=== PATIENT | female | born 1980 | race Caucasian/White ===

== ENCOUNTER 2017-09-11 22:11 | Inpatient (IN) | payer MEDICAID ==
[2017-09-12] MEDS ORDERED: ZIPRASIDONE 20 MG VIAL IM PRN (00:56)
[2017-09-12] MEDS ORDERED: MAGNESIUM HYDROXIDE 2,400 MG/10 ML CUP PO PRN (00:56)
[2017-09-12] MEDS ORDERED: MAG HYDROX/AL HYDROX/SIMETH 30 ML CUP PO PRN (00:56)
[2017-09-12] MEDS ORDERED: LORazepam 1 MG TAB PO PRN (00:56)
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
[2017-09-12] MEDS: lamoTRIgine 25 MG TAB PO SCH (10:04)
[2017-09-12] MEDS: NICOTINE 7MG/24HR PATCH TRANSDERM SCH (10:05)
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
[2017-09-12] MEDS: ACETAMINOPHEN TAB 325 MG TAB PO PRN (12:36)
[2017-09-13 06:36] VITALS: BP 145/74; PULSE 66; RESP 16; TEMP 97.8
[2017-09-13] MEDS ORDERED: LISINOPRIL 20 MG TAB PO SCH (09:00)
[2017-09-13] MEDS ORDERED: METOPROLOL SUCCINATE (ER) 25 MG TAB.ER.24H PO SCH (09:00)
[2017-09-13] MEDS: lamoTRIgine 25 MG TAB PO SCH (09:00)
[2017-09-13] MEDS ORDERED: CLOPIDOGREL 75 MG TAB PO SCH (09:00)
[2017-09-13] MEDS: NICOTINE 7MG/24HR PATCH TRANSDERM SCH (09:01)
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
--- NOTE | 2017-09-13 11:41 | P.DS ---
Providers Date of admission: 09/11/17 23:52 Expected date of discharge: 09/13/17 Attending physician: Kim Epstein Consults: 09/12/17 01:11 Consult Physician Routine Consulting Provider: Melisa Ramírez Consult Reason/Comments: h&p and medical follow up Do you want consulting provider notified?: Already Contacted Primary care physician: [facility] Course: Patient had a psychiatric evaluation is today and she was started on Lamictal 25 mg in the morning. She has been taking this medicine and does not have any adverse effect she had 2 doses and she thinks her mind is clearer and she can control her feelings better than it was. She is eager to return to assisted [facility] posted and gone with her life after hiring a environmental attorney etc. This was discussed with the treatment team and they all agreed that she could be discharged safely today. The social science analyst agreed to make follow-up appointments for the patient and called the assisted to pick her up. Her mental status is about the same as it was this morning. She is polite and friendly and cooperative she continues to deny suicidal and homicidal ideas. She denies hallucinations and delusional thinking. Her sensorium is clear. Patient is given a 30 day prescription for Lamictal 25 mg in the morning. She agreed to discuss with her outpatient doctor if her medicines need to be adjusted increased decreased or changed. She was advised not to drive or operate machinery if she feels sleepy, not to drink alcohol or use drugs, to inform her doctor if she gets and to call her therapist or go to the nearest ER if she gets suicidal thoughts. Patient Condition at Discharge: Good Plan - Discharge Summary New Discharge Prescriptions: New Acetaminophen Tab [Tylenol] 650 mg PO Q4HR PRN tab PRN Reason: Pain/Discomfort lamoTRIgine [LaMICtal] 25 mg PO DAILY 30 Days #30 tab Mag Hydrox/Al Hydrox/Simeth [Maalox] 30 ml PO Q4HR PRN cup PRN Reason: Gi Upset Discharge Medication List Acetaminophen Tab [Tylenol] 650 mg PO Q4HR PRN tab 09/13/17 [Rx] Mag Hydrox/Al Hydrox/Simeth [Maalox] 30 ml PO Q4HR PRN cup 09/13/17 [Rx] lamoTRIgine [LaMICtal] 25 mg PO DAILY 30 Days #30 tab 09/13/17 [Rx] Discharge Disposition: HOME SELF-CARE
[2017-09-13] MEDS: ACETAMINOPHEN TAB 325 MG TAB PO PRN (17:08)
[2017-09-13] MEDS ORDERED: ATORVASTATIN 40 MG TAB PO SCH (21:00)
== END 2017-09-13 18:26 | disposition home or self-care (01) | DRG 882 ==
LOC: 3MHU 23:52
PROVIDERS: ADMIT Psychiatry & Neurology Psychiatry; ATTEND Psychiatry & Neurology Psychiatry
DX: F43.25 Adjustment disorder with mixed disturbance of emotions and conduct (principal); R45.851 Suicidal ideations; F60.9 Personality disorder, unspecified; F17.200 Nicotine dependence, unspecified, uncomplicated; F41.9 Anxiety disorder, unspecified; Z90.49 Acquired absence of other specified parts of digestive tract; Z65.3 Problems related to other legal circumstances; Z79.899 Other long term (current) drug therapy
CPT/HCPCS: 80061; 83036; 84443